=== PATIENT | male | born 1990 | race Caucasian/White ===

== ENCOUNTER 2016-07-30 18:08 | Emergency (ER) | payer SELFPAY ==
--- NOTE | 2016-07-30 20:19 | ED CLINICAL REPORT ---
Clinical Report - Physicians/Mid Levels [facility] [address] [place] [address] 07/30/2016 18:09 Patient: FEDERICA FRANCISCO Time Seen: 1935; initial patient contact, initial documentation, patient care assumed. Arrived- By private vehicle. Historian- patient and spouse. HISTORY OF PRESENT ILLNESS Chief Complaint: COUGH, FEVER, CHILLS and MUSCLE ACHES. This started about 2 1/2 weeks ago and is still present and worsening. (3 - 4 days ago). It was abrupt in onset. The illness is described as moderate. The patient has had a cough, nasal congestion, sinus pressure, sinus drainage and fever of 101 F. He has had chills, generalized muscle aches and a nasal discharge. He has had scant amounts of thick, yellow sputum. No difficulty breathing, chest pain, sore throat, hoarseness or ear pain. Additional history - The patient has had contact with a sick family member. Symptoms of the sick contact include fever and cough. ( with him was pt yesterday, and multiple family members have been sick). They have had similar symptoms. Similar symptoms previously: None. Recent medical care: Not recently seen/assessed. REVIEW OF SYSTEMS The patient has had a headache. All systems otherwise negative, except as recorded above. PAST HISTORY Negative. SOCIAL HISTORY Never smoker. Occasional alcohol use. Mild second-hand smoke exposure (from a relative). No drug use. No recent travel. Is a local resident. He lives with spouse and a family member. FAMILY HISTORY Negative. ADDITIONAL NOTES The nursing notes have been reviewed with agreement regarding the chief complaint, HPI, ROS, PMH and patient medications and allergies. PHYSICAL EXAM Vital Signs: 07/30/2016 19:13 BP: 137/64. HR: 110. RR: 16. O2 saturation: 100%. Temp: 103.1 F. Pain level now: 6/10. Have been reviewed as abnormal and appear to be correct. Blood pressure normal. Tachycardic. Respiratory rate normal. Febrile. Oxygen saturation normal. Appearance: Alert. No acute distress. Eyes: Pupils equal, round and reactive to light. Eyes normal inspection. ENT: Ears normal. Nose normal. Pharynx normal. Uvula midline. Neck: Normal inspection. Neck supple. CVS: Heart rate / rhythm abnormal. Tachycardia (ventricular rate = 110). Heart sounds normal. Pulses normal. Respiratory: No respiratory distress. Breath sounds abnormal. Mild rales present in the bases bilaterally. Back: Normal inspection. Skin: Skin warm and dry. Normal skin color. No rash. Normal skin turgor. Extremities: Extremities exhibit normal ROM. No lower extremity edema. Neuro: Oriented X 3. No motor deficit. No sensory deficit. PROGRESS AND PROCEDURES Course of Care: tx options discussed, pt declined xray. Patient and spouse counseled in person regarding the patient's stable condition and diagnosis. 20:19. Differential Diagnosis: Other possible considerations: flu, viral illness, uri, bronchitis, sinusitis, pneumonia. Above considerations are based on history and physical exam. Differential diagnosis was discussed with patient and patient's spouse. Disposition: Discharged home in good and improved condition (20:19). Condition: good and stable. CLINICAL IMPRESSION Acute bacterial bronchitis. INSTRUCTIONS Alternate Tylenol (Acetaminophen) and Motrin (Ibuprofen) for fever, temperature greater than 101 degrees orally. Take according to label instructions. Do not work for two days. Drink plenty of fluids for the next 24 hours until better. Warnings: GENERAL WARNINGS: Return or contact your physician immediately if your condition worsens or changes unexpectedly, if not improving as expected, or if other problems arise. Specifically return if problem worsens. Prescription Medications: Albuterol HFA oral inhaler: inhale 1 to 2 puffs every four to six hours as needed for difficulty breathing. Dispense one (1) unit. No refills. Zithromax 250 mg tablets: take 2 orally today, followed by 1 daily for the next 4 days. No refills. Substitution is permissible. Follow-up: Follow up with your doctor in about five days as needed. Call for an appointment. Summary of care provided to patient. Understanding of the discharge instructions verbalized by patient. (Electronically signed by Tere Monroy A.R.N.P. 07/30/2016 21:44)
--- NOTE | 2016-07-30 20:19 | ED ORDER SUMMARY ---
..... Patient: FEDERICA FRANCISCO OrderSheet [facility] VisitID: [id number] [address] [place] [address] 26y, M Registration Date/Time: 07/30/2016 ORDER SHEET Weight: 106.5 kg (stated) Allergies: No Known Drug Allergy GENERAL ORDERS: MEDICATION ORDERS: Ceftriaxone IM 1 gm (NOW) (20:01 07/30/2016 Nubia Bunn verbal order read back to Ashleigh A.R.N.PBobby) (Ack 20:02 Nubia Bunn) (20:31 Dilcia Bunn) IV FLUIDS: ORDER SHEET NOTES: [Electronically signed by Froy Marlow R.N. (20:39 07/30/2016)] [Electronically signed by Tere MonroyR.N.PBobby (21:44 07/30/2016)] [Electronically locked/signed by Froy Marlow R.N. (20:39 07/30/2016)]
--- NOTE | 2016-07-30 20:19 | ED NURSING NOTES ---
Clinical Report - Nurses [facility] [address] [place] [address] 07/30/2016 18:09 Patient: FEDERICA FRANCISCO TRIAGE Triage time 1913. Chief Complaint: FEVER, COUGH and BODY ACHES. Alert. No acute distress. --19:17 Froy Marlow R.N. 19:12 07/30/16. BP: 137/64. HR: 110. RR: 16. O2 saturation: 100%. Temp: 103.1 F (oral). Pain level now: 12/23. --19:17 Froy Marlow R.N. Weight: 106.5 kg stated. Height/Length: 71 inches Per Patient. BMI: 32.8. --19:16 Froy Marlow R.N. Medications None. --19:16 Froy Marlow R.N. Allergies No Known Drug Allergy. --19:16 Froy Marlow R.N. History Arrived by private vehicle. Historian: patient. Accompanied by family. Onset was gradual. (about 4 days). He has had contact with a sick individual. ( Patient presents to the ED with symptoms of cough, congestion and fever x2.5 weeks with worsening cough and congestion beginning 3 to 4 days ago.). He has had chest congestion, chills, fatigue, sinus pain and a headache. 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 SOCIAL HX: Never smoker. Occasional alcohol use. History of drug use. (no). FALL RISK ASSESSMENT: Fall risk assessment completed. No fall risk identified. NUTRITIONAL RISK ASSESSMENT: The nutritional risk assessment revealed no deficiencies. FUNCTIONAL ASSESSMENT: Functional assessment: no impairments noted. LEARNING NEEDS ASSESSMENT: The learning needs assessment revealed no barriers. SKIN INTEGRITY ASSESSMENT: Skin integrity risk assessment completed. No skin integrity risk identified. --19:17 Froy Marlow R.N. PROBLEMS: no known problems. ADDITIONAL SURGERIES: no known surgeries. PHYSICAL ASSESSMENT Ambulatory to room. GENERAL / NEURO / PSYCH: Alert. Oriented X 4. Appears in no acute distress. HEENT: Pupils equal, round and reactive to light. Mucous membranes are pink. RESPIRATORY: Mild respiratory distress. Cough productive of scant amounts of thin sputum. Chest nontender. CVS: Normal sinus rhythm noted. Capillary refill less than 2 seconds. Pulses within normal limits. GI / : Abdomen soft and nontender and normal bowel sounds. SKIN: Skin intact. Hot skin. Normal skin turgor. --19:18 Froy Marlow R.N. NURSING PROGRESS NOTES 20:31 07/30/2016 Ceftriaxone IM 1 gm given. Allergies verified and confirmed 5 rights. (Administered by LIO Mary). --20:31 Froy Marlow R.N. DISPOSITION / DISCHARGE 20:26 07/30/16. BP: 116/67 taken on the left arm, via an automated monitor, while sitting. HR: 101 (regular, normal rate and strong). RR: 18 (regular and normal). O2 saturation: 97% on room air. Temp: 102.8 F (oral). --20:27 Tylor Goldsmith Condition at departure: improved. The goals identified in the patient's plan of care were met. Reviewed medication(s) side effects, precautions, dosing and course information. Prescription(s) given to the patient. Written instructions provided in Latvian. The patient was discharged home and accompanied by spouse. He left the Emergency Department ambulatory and via private vehicle. Spouse driving. FALL RISK ASSESSMENT: Fall risk assessment completed. No fall risk identified. --20:32 Froy Marlow R.N. Departure time: 2031 PM. --20:32 Froy Marlow R.N. Locked/Released at 07/30/2016 20:39 by Froy Marlow R.N.
--- NOTE | 2016-07-30 20:19 | ED ORDER SUMMARY ---
..... Patient: FEDERICA FRANCISCO OrderSheet [facility] VisitID: [id number] [address] [place] [place] [address] 26y, M Registration Date/Time: 07/30/2016 ORDER SHEET Weight: 106.5 kg (stated) Allergies: No Known Drug Allergy GENERAL ORDERS: MEDICATION ORDERS: Ceftriaxone IM 1 gm (NOW) (20:01 07/30/2016 Nubia Bunn verbal order read back to Ashleigh A.R.N.PBobby) (Ack 20:02 Nubia Bunn) (20:31 Dilcia Bunn) IV FLUIDS: ORDER SHEET NOTES: [Electronically signed by Froy Marlow R.N. (20:39 07/30/2016)] [Electronically signed by Tere MonroyR.N.PBobby (21:44 07/30/2016)] [Electronically locked/signed by Froy Marlow R.N. (20:39 07/30/2016)]
--- NOTE | 2016-07-30 20:19 | ED NURSING NOTES ---
Clinical Report - Nurses [facility] [address] [place] [address] 07/30/2016 18:09 Patient: FEDERICA FRANCISCO TRIAGE Triage time 1913. Chief Complaint: FEVER, COUGH and BODY ACHES. Alert. No acute distress. --19:17 Froy Marlow R.N. 19:12 07/30/16. BP: 137/64. HR: 110. RR: 16. O2 saturation: 100%. Temp: 103.1 F (oral). Pain level now: 12/23. --19:17 Froy Marlow R.N. Weight: 106.5 kg stated. Height/Length: 71 inches Per Patient. BMI: 32.8. --19:16 Froy Marlow R.N. Medications None. --19:16 Froy Marlow R.N. Allergies No Known Drug Allergy. --19:16 Froy Marlow R.N. History Arrived by private vehicle. Historian: patient. Accompanied by family. Onset was gradual. (about 4 days). He has had contact with a sick individual. ( Patient presents to the ED with symptoms of cough, congestion and fever x2.5 weeks with worsening cough and congestion beginning 3 to 4 days ago.). He has had chest congestion, chills, fatigue, sinus pain and a headache. 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 SOCIAL HX: Never smoker. Occasional alcohol use. History of drug use. (no). FALL RISK ASSESSMENT: Fall risk assessment completed. No fall risk identified. NUTRITIONAL RISK ASSESSMENT: The nutritional risk assessment revealed no deficiencies. FUNCTIONAL ASSESSMENT: Functional assessment: no impairments noted. LEARNING NEEDS ASSESSMENT: The learning needs assessment revealed no barriers. SKIN INTEGRITY ASSESSMENT: Skin integrity risk assessment completed. No skin integrity risk identified. --19:17 Froy Marlow R.N. PROBLEMS: no known problems. ADDITIONAL SURGERIES: no known surgeries. PHYSICAL ASSESSMENT Ambulatory to room. GENERAL / NEURO / PSYCH: Alert. Oriented X 4. Appears in no acute distress. HEENT: Pupils equal, round and reactive to light. Mucous membranes are pink. RESPIRATORY: Mild respiratory distress. Cough productive of scant amounts of thin sputum. Chest nontender. CVS: Normal sinus rhythm noted. Capillary refill less than 2 seconds. Pulses within normal limits. GI / : Abdomen soft and nontender and normal bowel sounds. SKIN: Skin intact. Hot skin. Normal skin turgor. --19:18 Froy Marlow R.N. NURSING PROGRESS NOTES 20:31 07/30/2016 Ceftriaxone IM 1 gm given. Allergies verified and confirmed 5 rights. (Administered by LIO Mary). --20:31 Froy Marlow R.N. DISPOSITION / DISCHARGE 20:26 07/30/16. BP: 116/67 taken on the left arm, via an automated monitor, while sitting. HR: 101 (regular, normal rate and strong). RR: 18 (regular and normal). O2 saturation: 97% on room air. Temp: 102.8 F (oral). --20:27 Tylor Goldsmith Condition at departure: improved. The goals identified in the patient's plan of care were met. Reviewed medication(s) side effects, precautions, dosing and course information. Prescription(s) given to the patient. Written instructions provided in Danish. The patient was discharged home and accompanied by spouse. He left the Emergency Department ambulatory and via private vehicle. Spouse driving. FALL RISK ASSESSMENT: Fall risk assessment completed. No fall risk identified. --20:32 Froy Marlow R.N. Departure time: 2031 PM. --20:32 Froy Marlow R.N. Locked/Released at 07/30/2016 20:39 by Froy Marlow R.N.
--- NOTE | 2016-07-30 21:45 | ED MED RECONCILIATION SUMMARY ---
Patient: FEDERICA FRANCISCO Medication Reconciliation Report [facility] VisitID: [id number] [address] [place] [address] 26y, M Registration Date/Time: 07/30/2016 Weight: 106.5 kg Height/Length: 71 in. BMI: 32.8 ALLERGIES: No Known Drug Allergy The patient's Home Medications are listed below: NONE. The source(s) of the original Home Medication information: Not obtained. The following Medications were given to the patient in the Emergency Department: Ceftriaxone [IM] IM 1 gm, administered: 07/30/2016 8:31:00 PM The following Medications were prescribed to the patient: Albuterol HFA oral inhaler: inhale 1 to 2 puffs every four to six hours as needed for difficulty breathing. Dispense one (1) unit. No refills. -- Tere Monroy, Britta.R.N.P. Zithromax 250 mg tablets: take 2 orally today, followed by 1 daily for the next 4 days. No refills. Substitution is permissible. -- Tere Monroy A.R.N.P.
--- NOTE | 2016-07-30 21:45 | ED DISCHARGE INSTRUCTIONS ---
Patient: FEDERICA FRANCISCO General Instructions [facility] VisitID: [id number] [place] [address] 26y, M Registration Date/Time: 07/30/2016 Acute bacterial bronchitis. INSTRUCTIONS Alternate Tylenol (Acetaminophen) and Motrin (Ibuprofen) for fever, temperature greater than 101 degrees orally. Take according to label instructions. Do not work for two days. Drink plenty of fluids for the next 24 hours until better. Warnings: GENERAL WARNINGS: Return or contact your physician immediately if your condition worsens or changes unexpectedly, if not improving as expected, or if other problems arise. Specifically return if problem worsens. Prescription Medications: Albuterol HFA oral inhaler: inhale 1 to 2 puffs every four to six hours as needed for difficulty breathing. Dispense one (1) unit. No refills. Zithromax 250 mg tablets: take 2 orally today, followed by 1 daily for the next 4 days. No refills. Substitution is permissible. Follow-up: Follow up with your doctor in about five days as needed. Call for an appointment. Summary of care provided to patient. Understanding of the discharge instructions verbalized by patient. ADDITIONAL INFORMATION Bronchitis (Adult: Abx Tx) BRONCHITIS is an infection of the air passages (bronchial tubes). It often occurs during the common cold. Symptoms include cough with mucus (phlegm) and low-grade fever. Bronchitis usually lasts 7-14 days. Mild cases can be treated with simple home remedies. More severe infection is treated with an antibiotic. Home Care: If symptoms are severe, rest at home for the first 2-3 days. When you resume activity, don't let yourself get too tired. Do not smoke. Avoid being exposed to the smoke of others. You may use acetaminophen (Tylenol) or ibuprofen (Motrin, Advil) to control fever or pain, unless another medicine was prescribed for this. [NOTE: If you have chronic liver or kidney disease or ever had a stomach ulcer or GI bleeding, talk with your doctor before using these medicines.] Your appetite may be poor, so a light diet is fine. Avoid dehydration by drinking 6-8 glasses of fluids per day (water, soft, drinks, juices, tea, soup, etc.). Extra fluids will help loosen secretions in the lungs. Pyir-xwo-jtzixxi cough medicines that containdextromethorphan(such as Robitussin DM) and decongestants (Actifed or Sudafed) may help relieve cough and congestion. [NOTE: Do not use decongestants if you have high blood pressure.] Finish all antibiotic medicine, even if you are feeling better after only a few days. Follow Up with your doctor or as directed if you dont start to feel better after three days. [NOTE: If you are age 65 or older, or if you have chronic asthma or COPD, we recommend a PNEUMOCOCCAL VACCINATION every five years and a yearly INFLUENZAVACCINATION (FLU-SHOT) every . Ask your doctor about this. If you had an X-ray, a radiologist will review it. You will be notified of any new findings that may affect your care.] Get Prompt Medical Attention if any of the following occur: Fever over 100.4F (38.0C) for more than three days Trouble breathing, wheezing or pain with breathing Coughing up blood or increased amounts of colored sputum Weakness, drowsiness, headache, facial pain, ear pain or a stiff neck Fever Control (Adult) A fever is a natural reaction of the body to an illness. In most cases, the temperature itself is not harmful. It actually helps the body fight infections. A fever does not need to be treated unless you feel very uncomfortable. Home Care If you feel warm, check your temperature. If you feel very uncomfortable and your temperature is at or higher than 100.4F (38C) oral, you may take acetaminophen (Tylenol) every 4 to 6 hours. If you cant take or keep down oral medicine, ask your pharmacist for Tylenol suppositories, which you can get without a prescription. If the fever does not respond to acetaminophen within 1 hour, take ibuprofen (Advil or Motrin). If this works, keep taking the ibuprofen every 6 to 8 hours. Note: If you have chronic liver or kidney disease or ever had a stomach ulcer or GI bleeding, talk with your doctor before using these medications. If either medication alone does not keep the fever down, you may alternate the two medicines every 3 to 4 hours, only if your healthcare provider has instructed you to do so. For example, take Motrin then wait 3 hours, take Tylenol then wait 3 hours, take Motrin, and so on. Follow your healthcare providers instructions exactly. Clothing: Keep clothing light because excess body heat is lost through the skin. The fever will go up if you wear extra layers or wrap in blankets. Fluids: Fever causes the body to lose water through evaporation. Drink plenty of fluids such as water, juice, clear sodas, john lili, or lemonade. Do not use aspirin in anyone under 18 years of age who is ill with a fever. It can cause severe liver damage. Follow Up with your doctor or as advised by our staff if you do not get better after 48 hours. Get Prompt Medical Attention if any of the following occur: Fever does not get better after taking fever medication Fast or difficult breathing Earache, sinus pain, stiff or painful neck, headache, repeated diarrhea or vomiting You feel unusually irritable, drowsy, or confused A rash appears You feel weak or dizzy, or that you might faint Albuterol Sulfate Pressurized inhalation, suspension What is this medicine? ALBUTEROL (al BYOO ter ole) is a bronchodilator. It helps open up the airways in your lungs to make it easier to breathe. This medicine is used to treat and to prevent bronchospasm. How should I use this medicine? This medicine is for inhalation through the mouth. Follow the directions on your prescription label. Take your medicine at regular intervals. Do not use more often than directed. Make sure that you are using your inhaler correctly. Ask you doctor or health care provider if you have any questions. Talk to your language tutor regarding the use of this medicine in children. Special care may be needed. What side effects may I notice from receiving this medicine? Side effects that you should report to your doctor or health managed care provider as soon as possible: allergic reactions like skin rash, itching or hives, swelling of the face, lips, or tongue breathing problems chest pain feeling faint or lightheaded, falls high blood pressure irregular heartbeat fever muscle cramps or weakness pain, tingling, numbness in the hands or feet vomiting Side effects that usually do not require medical attention (report to your doctor or health managed care provider if they continue or are bothersome): cough difficulty sleeping headache nervousness or trembling stomach upset stuffy or runny nose throat irritation unusual taste What may interact with this medicine? anti-infectives like chloroquine and pentamidine caffeine cisapride diuretics medicines for colds medicines for depression or for emotional or psychotic conditions medicines for weight loss including some herbal products methadone some antibiotics like clarithromycin, erythromycin, levofloxacin, and linezolid some heart medicines steroid hormones like dexamethasone, cortisone, hydrocortisone theophylline thyroid hormones What if I miss a dose? If you miss a dose, use it as soon as you can. If it is almost time for your next dose, use only that dose. Do not use double or extra doses. Where should I keep my medicine? Keep out of the reach of children. Store at room temperature between 15 and 30 degrees C (59 and 86 degrees F). The contents are under pressure and may burst when exposed to heat or flame. Do not freeze. This medicine does not work as well if it is too cold. Throw away any unused medicine after the expiration date. Inhalers need to be thrown away after the labeled number of puffs have been used or by the expiration date; whichever comes first. Ventolin HFA should be thrown away 12 months after removing from foil pouch. Check the instructions that come with your medicine. What should I tell my health care provider before I take this medicine? They need to know if you have any of the following conditions: diabetes heart disease or irregular heartbeat high blood pressure pheochromocytoma seizures thyroid disease an unusual or allergic reaction to albuterol, levalbuterol, sulfites, other medicines, foods, dyes, or preservatives or trying to get breast-feeding What should I watch for while using this medicine? Tell your doctor or health managed care provider if your symptoms do not improve. Do not use extra albuterol. If your asthma or bronchitis gets worse while you are using this medicine, call your doctor right away. If your mouth gets dry try chewing sugarless gum or sucking hard candy. Drink water as directed. Azithromycin Oral tablet What is this medicine? AZITHROMYCIN (az ith julian MYE sin) is a macrolide antibiotic. It is used to treat or prevent certain kinds of bacterial infections. It will not work for colds, flu, or other viral infections. How should I use this medicine? Take this medicine by mouth with a full glass of water. Follow the directions on the prescription label. The tablets can be taken with food or on an empty stomach. If the medicine upsets your stomach, take it with food. Take your medicine at regular intervals. Do not take your medicine more often than directed. Take all of your medicine as directed even if you think your are better. Do not skip doses or stop your medicine early. Talk to your language tutor regarding the use of this medicine in children. Special care may be needed. What side effects may I notice from receiving this medicine? Side effects that you should report to your doctor or health managed care provider as soon as possible: allergic reactions like skin rash, itching or hives, swelling of the face, lips, or tongue confusion, nightmares or hallucinations dark urine difficulty breathing hearing loss irregular heartbeat or chest pain pain or difficulty passing urine redness, blistering, peeling or loosening of the skin, including inside the mouth white patches or sores in the mouth yellowing of the eyes or skin Side effects that usually do not require medical attention (report to your doctor or health managed care provider if they continue or are bothersome): diarrhea dizziness, drowsiness headache stomach upset or vomiting tooth discoloration vaginal irritation What may interact with this medicine? Do not take this medicine with any of the following medications: lincomycin This medicine may also interact with the following medications: amiodarone antacids cyclosporine digoxin magnesium nelfinavir phenytoin warfarin What if I miss a dose? If you miss a dose, take it as soon as you can. If it is almost time for your next dose, take only that dose. Do not take double or extra doses. Where should I keep my medicine? Keep out of the reach of children. Store at room temperature between 15 and 30 degrees C (59 and 86 degrees F). Throw away any unused medicine after the expiration date. What should I tell my health care provider before I take this medicine? They need to know if you have any of these conditions: kidney disease liver disease irregular heartbeat or heart disease an unusual or allergic reaction to azithromycin, erythromycin, other macrolide antibiotics, foods, dyes, or preservatives or trying to get breast-feeding What should I watch for while using this medicine? Tell your doctor or health managed care provider if your symptoms do not improve. Do not treat diarrhea with over the counter products. Contact your doctor if you have diarrhea that lasts more than 2 days or if it is severe and watery. This medicine can make you more sensitive to the sun. Keep out of the sun. If you cannot avoid being in the sun, wear protective clothing and use sunscreen. Do not use sun lamps or tanning beds/booths. You have been given the following additional information: Bronchitis, Antiobiotic Treatment (Adult) Fever Control (Adult) Albuterol Sulfate Pressurized inhalation, suspension Azithromycin Oral tablet Do not work for two days. (Electronically signed by Tere Monroy A.R.N.P. 07/30/2016 21:44)
--- NOTE | 2016-07-30 21:45 | ED MED RECONCILIATION SUMMARY ---
Patient: FEDERICA FRANCISCO Medication Reconciliation Report [facility] VisitID: [id number] [address] [place] [address] 26y, M Registration Date/Time: 07/30/2016 Weight: 106.5 kg Height/Length: 71 in. BMI: 32.8 ALLERGIES: No Known Drug Allergy The patient's Home Medications are listed below: NONE. The source(s) of the original Home Medication information: Not obtained. The following Medications were given to the patient in the Emergency Department: Ceftriaxone [IM] IM 1 gm, administered: 07/30/2016 8:31:00 PM The following Medications were prescribed to the patient: Albuterol HFA oral inhaler: inhale 1 to 2 puffs every four to six hours as needed for difficulty breathing. Dispense one (1) unit. No refills. -- Tere Monroy, Britta.R.N.P. Zithromax 250 mg tablets: take 2 orally today, followed by 1 daily for the next 4 days. No refills. Substitution is permissible. -- Tere Monroy A.R.N.P.
--- NOTE | 2016-07-30 21:45 | ED MAR SUMMARY ---
..... Medication Administration Record [facility] [address] [place] [address] Patient: FEDERICA FRANCISCO Visit ID: [id number] 26y, M Weight: 106.5 kg Height/Length: 71 in BMI: 32.8 ALLERGIES: No Known Drug Allergy Given 20:31 07/30/2016 Froy Marlow RJordan Medication Administered: CEFTRIAXONE [IM], Dose: 1 gm IM. Medication Ordered: Ceftriaxone IM 1 gm (NOW).
--- NOTE | 2016-07-30 21:45 | ED MAR SUMMARY ---
..... Medication Administration Record [facility] [address] [address] Patient: FEDERICA FRANCISCO Visit ID: [id number] 26y, M Weight: 106.5 kg Height/Length: 71 in BMI: 32.8 ALLERGIES: No Known Drug Allergy Given 20:31 07/30/2016 Froy Marlow RJordan Medication Administered: CEFTRIAXONE [IM], Dose: 1 gm IM. Medication Ordered: Ceftriaxone IM 1 gm (NOW).
== END 2016-07-30 20:34 | disposition home or self-care (01) ==
LOC: ED SRH 18:08
DX: J40 Bronchitis, not specified as acute or chronic (principal); B96.89 Other specified bacterial agents as the cause of diseases classified elsewhere